=== PATIENT | female | born 1990 | race Caucasian/White ===

== ENCOUNTER → 2017-08-22 13:00 | Oncology outpatient (ONC) | payer BC, SELFPAY ==
[2017-08-16 10:59] VITALS: BP 103/68; PULSE 75; RESP 16; TEMP 36.8; O2SAT 99
[2017-08-16] MEDS: METOCLOPRAMIDE 10 MG in SODIUM CHLORIDE 0.9% 50 ML 208 ML IV (11:15)
[2017-08-16] MEDS: DIHYDROERGOTAMINE 1 MG/ML AMPUL IV (11:49)
[2017-08-16] MEDS: VALPROIC ACID 1,000 MG in SODIUM CHLORIDE 0.9% 50 ML 60 ML IV (12:14)
[2017-08-16] MEDS: MAGNESIUM SULFATE 1 GM in SODIUM CHLORIDE 0.9% 100 ML 102 ML IV (13:59)
[2017-08-21] MEDS: METOCLOPRAMIDE 10 MG in SODIUM CHLORIDE 0.9% 50 ML 208 ML IV (13:22)
[2017-08-21 13:25] VITALS: BP 106/60; PULSE 82; RESP 16; TEMP 36.7; O2SAT 98
[2017-08-21] MEDS: DIHYDROERGOTAMINE 1 MG/ML AMPUL IV (14:01)
[2017-08-21] MEDS: VALPROIC ACID 1,000 MG in SODIUM CHLORIDE 0.9% 50 ML 60 ML IV (14:30)
[2017-08-22] MEDS: METOCLOPRAMIDE 10 MG in SODIUM CHLORIDE 0.9% 50 ML 208 ML IV (13:54)
[2017-08-22 13:56] VITALS: BP 126/64; PULSE 70; RESP 16; TEMP 36.7; O2SAT 98
[2017-08-22] MEDS: DIHYDROERGOTAMINE 1 MG/ML AMPUL IV (14:37)
--- NOTE | 2017-08-22 14:59 | PC.NURSE ---
Patient reports dizzy spells since receiving headache treatment. They occur when she is standing, are twirling and she senses her voice sounding far away. They are occurring about 6 times per day. She finds if she sits down they go away in about 10 minutes. Patient instructed to continue to sit down if dizziness occurs, to not drive and to contact her DrLyle if they do not resolve in a few days or get worse. Triage contacted Dr. Kennedy to report dizziness and he ordered Valproic acid dose for this treatment to be reduced.
[2017-08-22] MEDS: SODIUM CHLORIDE 0.9% IV (15:12)
[2017-08-22] MEDS: VALPROIC ACID IV (15:12)
== END ==
PROVIDERS: Family Provider Specialist; PCP Student in an Organized Health Care Education/Training Program; Visit Provider Specialist
DX: G43.711 Chronic migraine without aura, intractable, with status migrainosus (principal); E86.9 Volume depletion, unspecified; R11.2 Nausea with vomiting, unspecified
CPT/HCPCS: 96365; 96367; 96375; 96409; J1110; J2765; J3475